=== PATIENT | female | born 1970 | race Caucasian/White ===

== ENCOUNTER 2018-05-14 11:41 | Emergency (ER) | payer SELFPAY ==
[~2018-05-14] VITALS: Ht 170.2 cm; Wt 86.3 kg
[~2018-05-14 11:41] MED LIST: ACETAMINOPHEN-1 EAC1 PO; CARDIO TEA1 EACH PO; CITALOPRAM HBR40 MG PO; ROXICODONE5 MG PO; VITAMIN D35000 UNIT PO; XARELTO15 MG PO
[2018-05-14] MEDS ORDERED: VOLTAREN 1% GE100 GM TP (13:48)
[2018-05-14] MEDS ORDERED: ULTRAM50 MG PO (13:57)
[2018-05-14 14:14] VITALS: BP 142/102
== END 2018-05-14 14:15 | disposition home or self-care (01) ==
LOC: EME 11:41
DX: G56.01 Carpal tunnel syndrome, right upper limb (principal); Z85.6 Personal history of leukemia; M25.521 Pain in right elbow; Z79.01 Long term (current) use of anticoagulants; Z87.891 Personal history of nicotine dependence
CPT/HCPCS: 73080; 99281; 99283